=== PATIENT | female | born 1960 | race Caucasian/White ===

== ENCOUNTER 2016-06-30 12:34 | Emergency (ER) | payer SELFPAY ==
[~2016-06-30 12:34] MED LIST: ASPIR 8181 MG PO; KLONOPIN1 MG PO; LOPRESSOR50 MG PO; PEPCID20 MG PO; WELLBUTRIN SR150 MG PO; WELLBUTRIN XL300 MG PO
--- NOTE | 2016-07-27 14:43 | ER ---
ADMIT: 06/30/2016 RM/LOC: ER [facility] MR#: [id number] [id number] [id number] DALTON ALVARADO [address] [place] [id number] Emergency Room Report SEX: F AGE: 56 : 1960 DATE: 06/30/2016 ADDENDUM: This patient comes to the ER because she is having severe dizziness. It was a sudden onset that started yesterday. She is so dizzy she has difficulty walking, and she feels like when she does walk the room is spinning and she has no equilibrium. She denies any headache or denies any pain. On physical exam, she does have horizontal nystagmus. She was given Valium and meclizine. When I went to re-evaluate her, she was feeling quite a bit better. DIAGNOSIS: Labyrinthitis. PLAN: I wrote a prescription for Valium and meclizine. We will have her follow up with her primary in the next week if not better. Please see my T- sheet. MAYURI Sagastume / Stu Ross MD / benjamín JOB #: [id number] CC: Stu Ross MD, Attending Physician Beryl Ruiz MD, Family Physician
== END 2016-06-30 14:30 | disposition home or self-care (01) ==
LOC: ER 12:34
DX: H83.01 Labyrinthitis, right ear (principal); F32.9 Major depressive disorder, single episode, unspecified; Z86.19 Personal history of other infectious and parasitic diseases; Z79.899 Other long term (current) drug therapy